=== PATIENT | male | born 1995 | race Caucasian/White ===

== ENCOUNTER 2016-05-20 20:23 | Emergency (ER) | payer MEDICAID, OTHER ==
[~2016-05-20] VITALS: Ht 185.4 cm; Wt 53.1 kg
[~2016-05-20 20:23] MED LIST: [UNRECOGNIZED DRUG - CODE]
--- OUTSIDE RECORDS SUMMARY | 2016-05-20 20:27 | XMS REPORT | Referral Summary ---
Author Author [facility] Organization [facility] Address Unknown Phone Unavailable Care Team Providers Care Conference Manager Name Role Phone Suzy Olmos Primary Care Physician [phone] Encounter [facility] [id number] Date(s): 09/10/15 - 09/12/15 [facility] [address] [place] [address] [phone] Discharge Diagnosis: DKA (diabetic ketoacidoses) Discharge Disposition: 01-Home or Self Care Attending Physician: Geneva Ramos MD Admitting Physician: Yossi Gomez MD Vital Signs Most recent to 1 oldest [Reference Range]: Temperature Oral 36.9 degC [35.8-37.3 degC] (09/10/15 9:22 PM) Temperature Temporal 36.5 degC Artery [36.3-37.8 (09/12/15 11:00 AM) degC] Apical Heart Rate 79 bpm [60-100 bpm] (09/11/15 1:08 AM) Peripheral Pulse 89 bpm Rate [60-100 bpm] (09/11/15 12:21 AM) Heart Rate Monitored 61 bpm [60-100 bpm] (09/12/15 11:00 AM) Respiratory Rate 15 br/min [14-20 br/min] (09/12/15 11:00 AM) Blood Pressure 107/71 mmHg [90-140/60-90 mmHg] (09/12/15 11:00 AM) Mean Arterial 79 mmHg Pressure, Cuff (09/12/15 11:00 AM) SpO2 96 % (09/12/15 3:40 PM) Problem List Condition Effective Dates Status Health Status Informant Acute Resolved pain(Confirmed) At risk of pressure Resolved sore(Confirmed) Unspecified Active depressive disorder(Confirmed) Long-term current Active use of insulin for diabetes mellitus(Confirmed) Insulin pump in Active place(Confirmed) Klinefelter Active syndrome(Confirmed) Tissue perfusion Resolved alteration(Confirmed )1 DM type I(Confirmed) Active 1Problem added automatically by system based on initiation of Tissue Perfusion Cerebral Plan of Care Allergies, Adverse Reactions, Alerts No Known Allergies Medications ibuprofen 400 mg, Oral, q6hr, Pain Mild (1-3), 0 Refill(s) Start Date: 09/10/15 Status: Ordered Levemir FlexPen 100 units/mL subcutaneous solution 15 units, SubCutaneous, Daily, stop taking levemir when insulin pump resumed., # 3 mL, 0 Refill(s), Pharmacy: [facility] #[id number], 15 units SubCutaneous Daily,x7 days,Instr:stop taking levemir when insulin pump resumed. Start Date: 09/12/15 Stop Date: 09/19/15 Status: Ordered NovoLOG 100 units/mL subcutaneous solution See Instructions, USE IN INSULIN PUMP 30-45 UNITS PER DAY, # 20 unknown unit, 2 Refill(s), eRx: [facility], USE IN INSULIN PUMP 30-45 UNITS PER DAY Start Date: 05/07/15 Status: Ordered NovoLOG FlexPen 100 units/mL subcutaneous solution 5 units, SubCutaneous, TIDAC, # 3 mL, 0 Refill(s), Pharmacy: [facility] # [id number], 5 units SubCutaneous TIDAC,x7 days Start Date: 09/12/15 Stop Date: 09/19/15 Status: Ordered Results Hematology Most recent to 1 2 oldest [Reference Range]: WBC [4.8-10.8 7.6 10*3/uL 10*3/uL] (09/12/15 3:43 AM) RBC [4.60-6.20] 4.39 *LOW* (09/12/15 3:43 AM) Hgb [14.0-18.0 13.9 gm/dL gm/dL] *LOW* (09/12/15 3:43 AM) Hct [42.0-52.0 %] 41.2 % *LOW* (09/12/15 3:43 AM) MCV [82.0-99.0 fL] 93.8 fL (09/12/15 3:43 AM) MCH [27.0-32.0 pg] 31.7 pg (09/12/15 3:43 AM) MCHC [32.0-36.0 33.7 gm/dL gm/dL] (09/12/15 3:43 AM) RDW [11.5-14.5 %] 13.7 % (09/12/15 3:43 AM) Platelet [150-400 211 10*3/uL 10*3/uL] (09/12/15 3:43 AM) MPV [9.4-12.3 fL] 11.5 fL (09/12/15 3:43 AM) Immature 0.3 % Granulocytes (09/12/15 3:43 AM) [0.0-1.0 %] Neutrophils [51-75 52 % %] (09/12/15 3:43 AM) Lymphocytes [20-46 35 % %] (09/12/15 3:43 AM) Monocytes [4-11 %] 7 % (09/12/15 3:43 AM) Eosinophils [0-4 %] 5 % *HI* (09/12/15 3:43 AM) Basophils [0-2 %] 0 % (09/12/15 3:43 AM) Neutro Absolute 3.98 10*3 [1.90-7.00 10*3] (09/12/15 3:43 AM) Lymph Absolute 2.64 10*3 [0.80-3.30 10*3] (09/12/15 3:43 AM) Terrell Absolute 0.55 10*3 [0.30-1.00 10*3] (09/12/15 3:43 AM) Eos Absolute 0.38 10*3 [0.00-0.50 10*3] (09/12/15 3:43 AM) Baso Absolute 0.03 10*3 [0.00-0.20 10*3] (09/12/15 3:43 AM) Nucleated RBC 0.0 /100 WBC Automated [0 /100 (09/12/15 3:43 AM) WBC] Chemistry Most recent to 1 2 oldest [Reference Range]: Sodium Lvl [136-144 137 mEq/L mEq/L] (09/12/15 5:05 AM) Potassium Lvl 3.6 mEq/L [3.6-5.1 mEq/L] (09/12/15 5:05 AM) Chloride [99-109 108 mEq/L mEq/L] (09/12/15 5:05 AM) CO2 [22-32 mEq/L] 23 mEq/L (09/12/15 5:05 AM) AGAP [3-20] 6 (09/12/15 5:05 AM) BUN [4-20 mg/dL] 8 mg/dL (09/12/15 5:05 AM) Glucose Lvl [70-100 154 mg/dL mg/dL] *HI* (09/12/15 5:05 AM) Creatinine Lvl 0.62 mg/dL [0.64-1.27 mg/dL] *LOW* (09/12/15 5:05 AM) eGFR [>60] >60 1 (09/12/15 5:05 AM) Calcium Lvl 8.4 mg/dL [8.6-10.0 mg/dL] *LOW* (09/12/15 5:05 AM) Albumin Lvl [3.5-4.8 3.0 gm/dL gm/dL] *LOW* (09/12/15 5:05 AM) Total Protein 5.4 gm/dL [6.1-7.9 gm/dL] *LOW* (09/12/15 5:05 AM) Globulin [1.9-4.3 2.4 gm/dL gm/dL] (09/12/15 5:05 AM) ALT [17-63 U/L] 13 U/L *LOW* (09/12/15 5:05 AM) AST [15-41 U/L] 16 U/L (09/12/15 5:05 AM) Alk Phos [26-104 65 U/L U/L] (09/12/15 5:05 AM) Bili Total [0.2-1.2 0.7 mg/dL 2 mg/dL] (09/12/15 5:05 AM) Sodium Venous 130 mEq/L [136-144 mEq/L] *LOW* (09/10/15 9:49 PM) Potassium Venous 3.9 mEq/L 3 [3.6-5.1 mEq/L] (09/10/15 9:49 PM) Calcium Ionized 1.21 mmol/L Venous [1.19-1.41 (7/8/16 9:49 PM) mmol/L] Total CO2 Venous 13 mEq/L [25-29 mEq/L] *LOW* (09/10/15 9:49 PM) HGB Venous NPT 16.7 gm/dL [14.0-16.0 gm/dL] *HI* (09/10/15 9:49 PM) HCT Venous 49.0 % [42.0-52.0 %] (09/10/15 9:49 PM) Glucose Venous >700 mg/dL [70-100 mg/dL] *HHI* (09/10/15 9:49 PM) BUN Venous [4-20] 19 (09/10/15 9:49 PM) Creatinine Venous 0.9 mg/dL [0.7-1.2 mg/dL] (09/10/15 9:49 PM) Venous CL [99-109 95 mEq/L mEq/L] *LOW* (09/10/15 9:49 PM) Anion Gap, Artis 22 [3-20] *HI* (09/10/15 9:49 PM) Blood Glucose, 233 mg/dL 233 mg/dL Capillary [74-106 *HI* *HI* mg/dL] (09/12/15 11:29 AM) (09/12/15 11:29 AM) Blood Glucose, High Capillary Out of (09/11/15 6:38 PM) Range 1Result Comment: Multiply eGFR results by 1.21 for race. 2Result Comment: Naproxen, specifically the metabolite O-desmethylnaproxen, may cause spurious elevation in Total Bilirubin levels. 3Result Comment: This test was performed on a whole blood specimen. The presence or absence of hemolysis cannot be assessed. Hemolysis can falsely elevate potassium levels. Normals are for venous specimens only. Toxicology Most recent to 1 2 oldest [Reference Range]: U Amphetamine Scrn Negative (09/11/15 1:44 AM) U Cocaine Scrn Negative (09/11/15 1:44 AM) U Cannab Scrn Positive *ABN* (09/11/15 1:44 AM) U Opiate Scrn Negative (09/11/15 1:44 AM) U PCP Scrn Negative (09/11/15 1:44 AM) U Benzodiazepine Negative Scrn (09/11/15 1:44 AM) U Barbiturate Scrn Negative (09/11/15 1:44 AM) Methadone Lvl Negative (09/11/15 1:44 AM) Tricyclics Not Detected 1 (09/11/15 1:44 AM) 1Result Comment: Cut-off concentrations: Amphetamines: 1000 ng/mL Cocaine: 300 ng/mL Cannabinoid: 50 ng/mL Opiate: 300 ng/mL Phencyclidine (PCP): 25 ng/mL Benzodiazepine: 200 ng/mL Barbiturate: 200 ng/mL Methadone: 300 ng/mL Tricyclic: 300 ng/mL The urine drug screen assays are qualitative screens. A more specific GC/MS method must be performed to obtain a confirmed analytical result. Unconfirmed screening results must not be used for non-medical purposes(e.g. employment or legal testing) Urinalysis Most recent to 1 2 oldest [Reference Range]: UA Color Straw (09/11/15 1:44 AM) UA Appear Clear (09/11/15 1:44 AM) UA pH [5.0-8.0] 5.0 (09/11/15 1:44 AM) UA Leuk Est Negative [Negative] (09/11/15 1:44 AM) UA Nitrite Negative [Negative] (09/11/15 1:44 AM) UA Protein Negative [Negative] (09/11/15 1:44 AM) UA Glucose Pos 3+ [Negative] *ABN* (09/11/15 1:44 AM) UA Ketones Pos 2+ [Negative] *ABN* (09/11/15 1:44 AM) UA Urobilinogen Negative [<1.0] (09/11/15 1:44 AM) UA Bili [Negative] Negative (09/11/15 1:44 AM) UA Blood [Negative] Negative (09/11/15 1:44 AM) UA Spec Grav 1.030 [1.003-1.030] (09/11/15 1:44 AM) Type Clean Catch (09/11/15 1:44 AM) Immunizations No data available for this section Procedures No data available for this section Social History Social History Type Response Smoking Status Current every day smoker Assessment and Plan Future Scheduled TestsReferral* Return to Clinic 10/23/14 12:06 PM Referrals to Other Providers Referred by: Anne Collins APRN
--- OUTSIDE RECORDS SUMMARY | 2016-05-20 20:27 | XMS REPORT ---
Author Monisha Woo [employer] Address Unknown Phone Unavailable Care Team Providers Care Sfdc Technical Architect Name Role Phone Monisha Schmitz CP Unavailable Allergies, Adverse Reactions, Alerts Substance Reaction Event Type N.K.D.A. Info Not Available Non Drug Allergy Problems Problem Type Condition Code Onset Dates Condition Status Assessment Type 1 diabetes mellitus with hyperglycemia E10.65 Active Problem Type 1 diabetes mellitus with hyperglycemia E10.65 Active Medications Medication Code System Code Instructions Start Date End Date Status Dosage Testosterone Cypionate [facility] [address]-99 200 MG/ML Intramuscular every 2 weeks Dec 08, 2015 0.25 ml as directed Syringe/Needle (Disp) NDC 0 23G X 1 IM every 2 weeks Dec 08, 2015 as directed Syringe/Needle (Disp) NDC 0 22G X 1-1/2 IM every 2 weeks Dec 08, 2015 as directed Humalog [facility] [address]-16 100 UNIT/ML Subcutaneous 150 units every 3 days Dec 13, 2015 1:8 carb ratio Procedures Procedure Coding System Code Date DM OP SLF-MGMT TRN SRVC IND-30 MIN CPT-4 G0108 Dec 15, 2015 Results No Known Results Summary Purpose eClinicalWorks Submission
--- OUTSIDE RECORDS SUMMARY | 2016-05-20 20:27 | XMS REPORT | Referral Summary ---
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 Discharge Diagnosis: Insulin pump in place Discharge Disposition: 01-Home or Self Care Attending Physician: Anne Collins APRN Admitting Physician: Anne Collins APRN Vital Signs Most recent to 1 oldest [Reference Range]: Peripheral Pulse 80 bpm Rate [60-100 bpm] (12/15/14 2:36 PM) Blood Pressure 100/60 mmHg [90-140/60-90 mmHg] (12/15/14 2:36 PM) Problem List Condition Effective Dates Status Health Status Informant 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) Insulin pump in Active place(Confirmed) 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 ) Type 1 diabetes Active mellitus, uncontrolled(Confirm ed) Allergies, Adverse Reactions, Alerts No Known Allergies Medications Depo-Testosterone 100 mg/mL intramuscular solution 100 mg 1 mL, IntraMuscular, q2wk, # 3 mL, 5 Refill(s) Start Date: 12/15/14 Status: Ordered Miscellaneous DME DME Item 3ml syringe with 11/2 inch needle uses syringe every 2 weeks 1 box= 100, See Instructions, # 1 Each, 8 Refill(s), Supply Start Date: 12/15/14 Status: Ordered NovoLOG 100 units/mL subcutaneous solution See Instructions, 1.0 mn per pump ICR 1:12 uses 30-45 units per day, # 2 vials , 6 Refill(s), Pharmacy: [id number], .9 mn per pump; ICR 1:12; uses 30-45 units per day Start Date: 10/23/14 Status: Ordered Results No data available for this section Immunizations No data available for this section Procedures No data available for this section Social History Social History Type Response Smoking Status Never smoker Assessment and Plan Extracted from: Title: Office Visit Note Author: Anne Collins APRN Date: 12/15/14 Assessment/Plan 1.Type 1 diabetes mellitus, uncontrolled 1. check blood sugars fasting, before meals and 2 hours after meals daily 2. increase basal rate to 1.0 and continue same ICR 3. start depo-testosterone 100mg Im q two weeks, injection given before leaving today 4. call weekly blood sugars to office 5. monitor diet closely I discussed the patient with the preceptor. 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 Ordered: Office Visit Level 4 Est 74594 Orders: Durable Medical Equipment Rx, DME Item 3ml syringe with 11/2 inch needle uses syringe every 2 weeks 1 [id number], See Instructions, # 1 Each, 8 Refill(s), Supply insulin aspart, See Instructions, 1.0 mn per pump ICR 1:12 uses 30-45 units per day, # 2 vials, 6 Refill(s), Pharmacy: [id number], .9 mn per pump; ICR 1:12; uses 30-45 units per day testosterone, 100 mg 1 mL, IntraMuscular, q2wk, # 3 mL, 5 Refill(s) Extracted from: Title: Ambulatory Patient Education Author: Anne Collins FABRIC WORKER LEADER Date: 12/15/14 Family Medicine Blood Glucose Monitoring Monitoring your blood glucose (also know as blood sugar) helps you to manage your diabetes. It also helps you and your health care provider monitor your diabetes and determine how well your treatment plan is working. WHY SHOULD YOU MONITOR YOUR BLOOD GLUCOSE? It can help you understand how food, exercise, and medicine affect your blood glucose. It allows you to know what your blood glucose is at any given moment. You can quickly tell if you are having low blood glucose (hypoglycemia) or high blood glucose (hyperglycemia). It can help you and your health care provider know how to adjust your medicines. It can help you understand how to manage an illness or adjust medicine for exercise. WHEN SHOULD YOU TEST? Your health care provider will help you decide how often you should check your blood glucose. This may depend on the type of diabetes you have, your diabetes control, or the types of medicines you are taking. Be sure to write down all of your blood glucose readings so that this information can be reviewed with your health care provider. See below for examples of testing times that your health care provider may suggest. Type 1 Diabetes Test 4 times a day if you are in good control, using an insulin pump, or perform multiple daily injections. If your diabetes is not well controlled or if you are sick, you may need to monitor more often. It is a good idea to also monitor: Before and after exercise. Between meals and 2 hours after a meal. Occasionally between 2:00 a.m. and 3:00 a.m. Type 2 Diabetes It can vary with each person, but generally, if you are on insulin, test 4 times a day. If you take medicines by mouth (orally), test 2 times a day. If you are on a controlled diet, test once a day. If your diabetes is not well controlled or if you are sick, you may need to monitor more often. HOW TO MONITOR YOUR BLOOD GLUCOSE Supplies Needed Blood glucose meter. Test strips for your meter. Each meter has its own strips. You must use the strips that go with your own meter. A pricking needle (lancet). A device that holds the lancet (lancing device). A journal or log book to write down your results. Procedure Wash your hands with soap and water. Alcohol is not preferred. Prick the side of your finger (not the tip) with the lancet. Gently milk the finger until a small drop of blood appears. Follow the instructions that come with your meter for inserting the test strip, applying blood to the strip, and using your blood glucose meter. Other Areas to Get Blood for Testing Some meters allow you to use other areas of your body (other than your finger) to test your blood. These areas are called alternative sites. The most common alternative sites are: The forearm. The thigh. The back area of the lower leg. The palm of the hand. The blood flow in these areas is slower. Therefore, the blood glucose values you get may be delayed, and the numbers are different from what you would get from your fingers. Do not use alternative sites if you think you are having hypoglycemia. Your reading will not be accurate. Always use a finger if you are having hypoglycemia. Also, if you cannot feel your lows (hypoglycemia unawareness), always use your fingers for your blood glucose checks. ADDITIONAL TIPS FOR GLUCOSE MONITORING Do not reuse lancets. Always carry your supplies with you. All blood glucose meters have a 24-hour "hotline" number to call if you have questions or need help. Adjust (calibrate) your blood glucose meter with a control solution after finishing a few boxes of strips. BLOOD GLUCOSE RECORD KEEPING It is a good idea to keep a daily record or log of your blood glucose readings. Most glucose meters, if not all, keep your glucose records stored in the meter. Some meters come with the ability to download your records to your home computer. Keeping a record of your blood glucose readings is especially helpful if you are wanting to look for patterns. Make notes to go along with the blood glucose readings because you might forget what happened at that exact time. Keeping good records helps you and your health care provider to work together to achieve good diabetes management. Document Released: 02/22/2004 Document Revised: 07/06/2014 Document Reviewed: [employer] Patient Information 2015 [employer]. This information is not intended to replace advice given to you by your health care provider. Make sure you discuss any questions you have with your health care provider. No follow up information was provided. Future Scheduled TestsReferral* Return to Clinic 10/23/14 12:06 PM Referrals to Other Providers Referred by: Anne Collins APRN
--- OUTSIDE RECORDS SUMMARY | 2016-05-20 20:27 | XMS REPORT | Referral Summary ---
Author Author [facility]] Organization [facility]] Address Unknown Phone Unavailable Care Team Providers Care Activity Coordinator Name Role Phone No PCP, Pt States Primary Care Physician [phone] Encounter [facility] Date(s): 11/09/15 - 11/09/15 [facility]] [address] [place] [address] Discharge Diagnosis: Poorly controlled type 1 diabetes mellitus Discharge Disposition: 01-Home or Self Care Attending Physician: Hussein Burr MD Admitting Physician: Hussein Burr MD Vital Signs Most recent to 1 oldest [Reference Range]: Temperature Oral 36.7 degC [35.8-37.3 degC] (11/09/15 1:30 PM) Peripheral Pulse 74 bpm Rate [60-100 bpm] (11/09/15 1:30 PM) Heart Rate Monitored 69 bpm [60-100 bpm] (11/09/15 4:38 PM) Respiratory Rate 18 br/min [14-20 br/min] (11/09/15 1:30 PM) Blood Pressure 102/62 mmHg [90-140/60-90 mmHg] (11/09/15 4:38 PM) Mean Arterial 74 mmHg Pressure, Cuff (11/09/15 4:38 PM) SpO2 96 % (11/09/15 1:30 PM) Problem List Condition Effective Dates Status [...] 0 Refill(s) Start Date: 09/10/15 Status: Ordered Insulin Pin [place] (DME) DME Item Insulin pen needle [id number] Inject 1 sq QID, See Instructions, # 400 Each, 3 Refill(s), Pharmacy: [facility], Insulin pen needle; [id number]; Inject 1 sq QID, Supply Start Date: 10/27/15 Status: Ordered Lantus Solostar Pen 100 units/mL subcutaneous solution See Instructions, Use as directed in the event of pump failure, approx 20 units/ day, # 1 boxes, 5 Refill(s), Pharmacy: [facility], Use as directed in the event of pump failure, approx 20 units/day Start Date: 10/27/15 Status: Ordered NovoLOG 100 units/mL subcutaneous solution See Instructions, USE IN INSULIN PUMP 30-45 UNITS PER DAY, # 5 vials, 4 Refill (s), Pharmacy: [facility], USE IN INSULIN PUMP 30-45 UNITS PER DAY Start Date: 10/19/15 Status: Ordered NovoLOG FlexPen 100 units/mL subcutaneous solution 5 units, SubCutaneous, TIDAC, # 3 boxes, 5 Refill(s), Pharmacy: [facility], 5 units SubCutaneous TIDAC Start Date: 10/27/15 Status: Ordered Simply Saline 0.9% nasal spray 1 sprays, Nasal, q30min, as needed for dry nasal passages, # 45 mL, 0 Refill(s) Start Date: 10/26/15 Status: Ordered Results Chemistry Most recent to 1 oldest [Reference Range]: Sodium Lvl [136-144 130 mEq/L mEq/L] *LOW* (11/09/15 2:29 PM) Potassium Lvl 4.3 mEq/L [3.6-5.1 mEq/L] (11/09/15 2:29 PM) Chloride [99-109 94 mEq/L mEq/L] *LOW* (11/09/15 2:29 PM) CO2 [22-32 mEq/L] 19 mEq/L *LOW* (11/09/15 2:29 PM) AGAP [3-20] 17 (11/09/15 2:29 PM) BUN [4-20 mg/dL] 24 mg/dL *HI* (11/09/15 2:29 PM) Glucose Lvl [70-100 582 mg/dL mg/dL] *HI* (11/09/15 2:29 PM) Creatinine Lvl 1.00 mg/dL [0.64-1.27 mg/dL] (11/09/15 2:29 PM) eGFR [>60] >60 1 (11/09/15 2:29 PM) Calcium Lvl 9.7 mg/dL [8.6-10.0 mg/dL] (11/09/15 2:29 PM) Blood Glucose, 305 mg/dL Capillary [70-100 *HI* mg/dL] (11/09/15 4:29 PM) 1Result Comment: Multiply eGFR results by 1.21 for race. Urinalysis Most recent to 1 oldest [Reference Range]: UA Color Lt Yellow (11/09/15 2:29 PM) UA Appear Clear (11/09/15 2:29 PM) UA pH [5.0-8.0] 5.0 (11/09/15 2:29 PM) UA Leuk Est Negative [Negative] (11/09/15 2:29 PM) UA Nitrite Negative [Negative] (11/09/15 2:29 PM) UA Protein Negative [Negative] (11/09/15 2:29 PM) UA Glucose Pos 3+ [Negative] *ABN* (11/09/15 2:29 PM) UA Ketones Pos 3+ [Negative] *ABN* (11/09/15 2:29 PM) UA Urobilinogen Negative [<1.0] (11/09/15 2:29 PM) UA Bili [Negative] Negative (11/09/15 2:29 PM) UA Blood [Negative] Negative (11/09/15 2:29 PM) UA Spec Grav 1.028 [1.003-1.030] (11/09/15 2:29 PM) Type Clean Catch (11/09/15 2:29 PM) Immunizations No data available for this section Procedures No data available for this section Social History Social History Type Response Smoking Status Former smoker Assessment and Plan No data available for this section
--- OUTSIDE RECORDS SUMMARY | 2016-05-20 20:27 | XMS REPORT | Referral Summary ---
Author Author [facility] Organization [facility] Address Unknown Phone Unavailable Care Team Providers Care Import Coordination And Production Head Name Role Phone No PCP, Pt States Primary Care Physician [phone] Encounter [facility] Date(s): 10/26/15 - 10/27/15 [facility] [address] [place] [address] Discharge Diagnosis: Acute URI Discharge Diagnosis: Pharyngitis Discharge Diagnosis: Sinusitis Discharge Disposition: 01-Home or Self Care Attending Physician: Juan Bennett MD Admitting Physician: Juan Bennett MD Vital Signs Most recent to 1 oldest [Reference Range]: Temperature Oral 36.9 degC [35.8-37.3 degC] (10/26/15 11:04 PM) Peripheral Pulse 64 bpm Rate [60-100 bpm] (10/27/15 12:07 AM) Respiratory Rate 18 br/min [14-20 br/min] (10/26/15 11:04 PM) Blood Pressure 110/64 mmHg [90-140/60-90 mmHg] (10/27/15 12:07 AM) SpO2 97 % (10/26/15 11:49 PM) Problem List Condition Effective Dates Status [...] Adverse Reactions, Alerts No Known Allergies Medications azithromycin 250 mg oral tablet 250 mg 1 tabs, Oral, Daily, 2 tabs PO day 1, 1 tab/day after that, # 8 tabs, 0 Refill(s) Start Date: 10/26/15 Stop Date: 11/02/15 Status: Ordered ibuprofen 400 mg, Oral, q6hr, Pain Mild (1-3), 0 Refill(s) Start Date: 09/10/15 Status: Ordered Insulin Pin [place] (DME) DME Item Insulin pen needle [id number] Inject 1 sq QID, See Instructions, # 400 Each, 3 Refill(s), Pharmacy: [facility], Insulin pen needle; [id number]; Inject 1 sq QID, Supply Start Date: 10/27/15 Status: Ordered Lantus Solostar Pen 100 units/mL subcutaneous solution See Instructions, Use as directed in the event of pump failure, approx 20 units/ day, # 1 boxes, 5 Refill(s), Pharmacy: [facility], Use as directed in the event of pump failure, approx 20 units/day Start Date: 10/27/15 Status: Ordered Naprosyn 500 mg oral tablet 500 mg 1 tabs, Oral, q8hr, Pain, X 3 days, # 9 tabs, 0 Refill(s) Start Date: 10/26/15 Stop Date: 10/29/15 Status: Ordered NovoLOG 100 units/mL subcutaneous solution See Instructions, USE IN INSULIN PUMP 30-45 UNITS PER DAY, # 5 vials, 4 Refill (s), Pharmacy: [facility], USE IN INSULIN PUMP 30-45 UNITS PER DAY Start Date: 10/19/15 Status: Ordered NovoLOG FlexPen 100 units/mL subcutaneous solution 5 units, SubCutaneous, TIDAC, # 3 boxes, 5 Refill(s), Pharmacy: [facility], 5 units SubCutaneous TIDAC Start Date: 10/27/15 Status: Ordered NyQuil Severe Cold & Flu oral liquid 30 mL, Oral, q4hr, as needed for cold symptoms, X 3 days, # 540 mL, 0 Refill(s) Start Date: 10/26/15 Stop Date: 10/29/15 Status: Ordered Simply Saline 0.9% nasal spray 1 sprays, Nasal, q30min, as needed for dry nasal passages, # 45 mL, 0 Refill(s) Start Date: 10/26/15 Status: Ordered Results No data available for this section Immunizations No data available for this section Procedures No data available for this section Social History Social History Type Response Smoking Status Former smoker Assessment and Plan No data available for this section
--- OUTSIDE RECORDS SUMMARY | 2016-05-20 20:27 | XMS REPORT ---
Author Author Clarence Pryor [facility] e[facility] Address Unknown Phone Unavailable Care Team Providers Care Damascener Name Role Phone Clarence Pryor Unavailable Allergies No Known Allergies Problems Problem Type Condition Code Onset Dates Condition Status Problem Type 1 diabetes mellitus with hyperglycemia E10.65 Active Medications No Known Medications Results No Known Results Summary Purpose eClinicalWorks Submission
--- OUTSIDE RECORDS SUMMARY | 2016-05-20 20:27 | XMS REPORT | Referral Summary ---
Author Author [facility] Organization [facility] Address Unknown Phone Unavailable Care Team Providers Care Electric Crane Operator Name Role Phone Suzy Olmos Primary Care Physician [phone] Encounter Date(s): 11/26/14 - 11/26/14 [facility] [address] [place] [address] [facility] Discharge Disposition: 01-Home or Self Care Attending Physician: Jarocho Madrid MD Admitting Physician: Jarocho Madrid MD Vital Signs No data available for this section Problem List Condition Effective Dates Status Health Status Informant [facility] current Active use of insulin(Confirmed) Insulin pump in Active place(Confirmed) 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 ) Type 1 diabetes Active mellitus, uncontrolled(Confirm ed) Allergies, Adverse Reactions, Alerts No Known Allergies Medications NovoLOG 100 units/mL subcutaneous solution See Instructions, .9 mn per pump ICR 1:12 uses 30-45 units per day, # 2 vials , 6 Refill(s), Pharmacy: [id number], .9 mn per pump; ICR 1:12; uses 30-45 units per day Start Date: 10/23/14 Status: Ordered Results No data available for this section Immunizations No data available for this section Procedures No data available for this section Social History Social History Type Response Smoking Status Never smoker Assessment and Plan Future Scheduled TestsReferral* Return to Clinic 10/23/14 12:06 PM Referrals to Other Providers Referred by: Anne Collins APRN
--- OUTSIDE RECORDS SUMMARY | 2016-05-20 20:27 | XMS REPORT | Referral Summary ---
Author Author [facility] Organization [facility] Address Unknown Phone Unavailable Care Team Providers Care Financial Services Associate Name Role Phone Suzy Olmos Primary Care Physician [phone] Encounter [facility] [id number] Date(s): 10/17/15 - 10/18/[address] [facility] [address] [place] [address] Discharge Diagnosis: Diabetes mellitus with hyperglycemia Discharge Diagnosis: Contusion of right hand Discharge Disposition: 01-Home or Self Care Attending Physician: Cristopher Brooks JR, MD Admitting Physician: Cristopher Brooks JR, MD Vital Signs Most recent to 1 oldest [Reference Range]: Temperature Oral 36.9 degC [35.8-37.3 degC] (10/18/15 12:49 AM) Peripheral Pulse 80 bpm Rate [60-100 bpm] (10/18/15 12:49 AM) Respiratory Rate 16 br/min [14-20 br/min] (10/18/15 12:49 AM) Blood Pressure 100/60 mmHg [90-140/60-90 mmHg] (10/18/15 12:49 AM) SpO2 98 % (10/18/15 12:49 AM) Problem List Condition Effective Dates Status Health [...] 0 Refill(s) Start Date: 09/10/15 Status: Ordered Lantus Solostar Pen 100 units/mL subcutaneous solution See Instructions, Use as directed in the event of pump failure, approx 20 units/ day, # 1 boxes, 5 Refill(s), Pharmacy: [facility] #[id number], Use as directed in the event of pump failure, approx 20 units/day Start Date: 09/30/15 Status: Ordered Levemir FlexPen 100 units/mL subcutaneous solution 15 units, SubCutaneous, Daily, stop taking levemir when insulin pump resumed., # 3 mL, 0 Refill(s), Pharmacy: [facility] #[id number], 15 units SubCutaneous Daily,x7 days,Instr:stop taking levemir when insulin pump resumed. Start Date: 09/12/15 Stop Date: 09/19/15 Status: Ordered NovoLOG 100 units/mL subcutaneous solution See Instructions, USE IN INSULIN PUMP 30-45 UNITS PER DAY, # 5 vials, 1 Refill (s), Pharmacy: [facility] #[id number], USE IN INSULIN PUMP 30-45 UNITS PER DAY Start Date: 10/18/15 Status: Ordered NovoLOG FlexPen 100 units/mL subcutaneous solution 5 units, SubCutaneous, TIDAC, # 3 boxes, 5 Refill(s), Pharmacy: [facility] #[id number], 5 units SubCutaneous TIDAC Start Date: 09/30/15 Status: Ordered Results Chemistry Most recent to 1 oldest [Reference Range]: Blood Glucose, 338 mg/dL Capillary [70-100 *HI* mg/dL] (10/18/15 12:13 AM) Immunizations No data available for this section Procedures No data available for this section Social History Social History Type Response Smoking Status Current every day smoker Assessment and Plan Future Scheduled TestsReferral* Return to Clinic 10/23/14 12:06 PM Referrals to Other Providers Referred by: Anne Collins APRN
--- OUTSIDE RECORDS SUMMARY | 2016-05-20 20:27 | XMS REPORT | Referral Summary ---
Author Author [facility] Organization [facility] Address Unknown Phone Unavailable Care Team Providers Care Lead Ios Developer Name Role Phone Suzy Olmos Primary Care Physician [phone] Encounter Date(s): 11/26/14 - 11/26/14 [facility] [address] [place] [address] [facility] Discharge Disposition: 01-Home or Self Care Attending Physician: Jarocho Madrid MD Admitting Physician: Jarocho Madrid MD Vital Signs No data available for this section Problem List Condition Effective Dates Status Health Status Informant [facility] current Active use of insulin(Confirmed) Insulin pump in Active place(Confirmed) 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
--- OUTSIDE RECORDS SUMMARY | 2016-05-20 20:27 | XMS REPORT | Referral Summary ---
Author Author [facility] Organization [facility] Address Unknown Phone Unavailable Care Team Providers Care Weaver Needle Loom Name Role Phone Suzy Olmos Primary Care Physician [phone] Encounter [facility] Date(s): 01/02/16 - 01/06/[address] [facility] [address] [place], [place] [address] Discharge Disposition: 01-Home or Self Care Attending Physician: Casey Ragland MD Admitting Physician: Gamaliel Adler MD Vital Signs Most recent to 1 oldest [Reference Range]: Temperature Oral 36.9 degC [35.8-37.3 degC] (01/05/16 8:15 PM) Temperature Temporal 36.4 degC Artery [36.3-37.8 (01/06/16 4:00 PM) degC] Peripheral Pulse 72 bpm Rate [60-100 bpm] (01/05/16 4:00 PM) Heart Rate Monitored 76 bpm [60-100 bpm] (01/06/16 4:00 PM) Respiratory Rate 14 br/min [14-20 br/min] (01/06/16 4:00 PM) Blood Pressure 106/61 mmHg [90-140/60-90 mmHg] (01/06/16 4:00 PM) Mean Arterial 78 mmHg Pressure, Cuff (01/06/16 8:57 AM) SpO2 97 % (01/06/16 8:57 AM) Remote Telemetry Ongoing (01/03/16 8:15 AM) Problem List Condition Effective Dates Status Health Status Informant Acute Resolved pain(Confirmed) At risk of pressure Active sore(Confirmed) Unspecified Active depressive disorder(Confirmed) Long-term current Active use of insulin for diabetes mellitus(Confirmed) Insulin pump in Active place(Confirmed) Klinefelter Active syndrome(Confirmed) Tissue perfusion Resolved alteration(Confirmed )1 DM type I(Confirmed) Active 1Problem added automatically by system based on initiation of Tissue Perfusion Cerebral Plan of Care Allergies, Adverse Reactions, Alerts No Known Allergies Medications insulin pump humalog insulin pump humalog, 50 units per day, 0 Refill(s) Start Date: 01/02/16 Status: Ordered Results Hematology Most recent to 1 oldest [Reference Range]: WBC [4.8-10.8 8.4 10*3/uL 10*3/uL] (01/04/16 4:46 AM) RBC [4.60-6.20] 4.45 *LOW* (01/04/16 4:46 AM) Hgb [14.0-18.0 13.8 gm/dL gm/dL] *LOW* (01/04/16 4:46 AM) Hct [42.0-52.0 %] 39.8 % *LOW* (01/04/16 4:46 AM) MCV [82.0-99.0 fL] 89.4 fL (01/04/16 4:46 AM) MCH [27.0-32.0 pg] 31.0 pg (01/04/16 4:46 AM) MCHC [32.0-36.0 34.7 gm/dL gm/dL] (01/04/16 4:46 AM) RDW [11.5-14.5 %] 12.7 % (01/04/16 4:46 AM) Platelet [150-400 210 10*3/uL 10*3/uL] (01/04/16 4:46 AM) MPV [9.4-12.3 fL] 10.6 fL (01/04/16 4:46 AM) Immature 0.2 % Granulocytes (01/04/16 4:46 AM) [0.0-1.0 %] Neutrophils [51-75 42 % %] *LOW* (01/04/16 4:46 AM) Lymphocytes [20-46 42 % %] (01/04/16 4:46 AM) Monocytes [4-11 %] 7 % (01/04/16 4:46 AM) Eosinophils [0-4 %] 8 % *HI* (01/04/16 4:46 AM) Basophils [0-2 %] 1 % (01/04/16 4:46 AM) Neutro Absolute 3.52 10*3 [1.90-7.00 10*3] (01/04/16 4:46 AM) Lymph Absolute 3.53 10*3 [0.80-3.30 10*3] *HI* (01/04/16 4:46 AM) Faulkner Absolute 0.58 10*3 [0.30-1.00 10*3] (01/04/16 4:46 AM) Eos Absolute 0.64 10*3 [0.00-0.50 10*3] *HI* (01/04/16 4:46 AM) Baso Absolute 0.07 10*3 [0.00-0.20 10*3] (01/04/16 4:46 AM) Nucleated RBC 0.0 /100 WBC Automated [0 /100 (01/03/16 3:49 AM) WBC] Differential Scanned Slide (01/03/16 3:49 AM) Chemistry Most recent to 1 oldest [Reference Range]: Sodium Lvl [136-144 137 mEq/L mEq/L] (01/05/16 4:29 AM) Potassium Lvl 3.4 mEq/L [3.6-5.1 mEq/L] *LOW* (01/05/16 4:29 AM) Chloride [99-109 102 mEq/L mEq/L] (01/05/16 4:29 AM) CO2 [22-32 mEq/L] 27 mEq/L (01/05/16 4:29 AM) AGAP [3-20] 8 (01/05/16 4:29 AM) BUN [4-20 mg/dL] 16 mg/dL (01/05/16 4:29 AM) Glucose Lvl [70-100 97 mg/dL mg/dL] (01/05/16 4:29 AM) Creatinine Lvl 0.63 mg/dL [0.64-1.27 mg/dL] *LOW* (01/05/16 4:29 AM) eGFR [>60] >60 1 (01/05/16 4:29 AM) Calcium Lvl 9.4 mg/dL [8.6-10.0 mg/dL] (01/05/16 4:29 AM) Albumin Lvl [3.5-4.8 3.4 gm/dL gm/dL] *LOW* (01/04/16 4:46 AM) Total Protein 6.4 gm/dL [6.1-7.9 gm/dL] (01/02/16 10:08 PM) Globulin [1.9-4.3 2.6 gm/dL gm/dL] (01/02/16 10:08 PM) ALT [17-63 U/L] 17 U/L (01/02/16 10:08 PM) AST [15-41 U/L] 24 U/L (01/02/16 10:08 PM) Alk Phos [26-104 138 U/L U/L] *HI* (01/02/16 10:08 PM) Bili Total [0.2-1.2 1.0 mg/dL 2 mg/dL] (01/02/16 10:08 PM) Magnesium Lvl 2.2 mg/dL [1.8-2.5 mg/dL] (01/02/16 10:08 PM) Phosphorus [2.4-4.7 4.4 mg/dL 3 mg/dL] (01/04/16 4:46 AM) Lactic Acid Lvl 4.6 mEq/L 4 [0.5-2.2 mEq/L] *HHI* (01/02/16 10:54 PM) Sodium Venous 131 mEq/L [136-144 mEq/L] *LOW* (01/02/16 9:29 PM) Potassium Venous 4.8 mEq/L 5 [3.6-5.1 mEq/L] (01/02/16 9:29 PM) Calcium Ionized 1.21 mmol/L Venous [1.19-1.41 (01/02/16 9:29 PM) mmol/L] Total CO2 Venous 19 mEq/L [25-29 mEq/L] *LOW* (01/02/16 9:29 PM) HGB Venous NPT 13.9 gm/dL [14.0-18.0 gm/dL] *LOW* (01/02/16 9:29 PM) HCT Venous 41.0 % [42.0-52.0 %] *LOW* (01/02/16 9:29 PM) Glucose Venous >700 mg/dL [70-100 mg/dL] *HHI* (01/02/16 9:29 PM) BUN Venous [4-20] 21 *HI* (01/02/16 9:29 PM) Creatinine Venous 0.8 mg/dL [0.7-1.2 mg/dL] (01/02/16 9:29 PM) Venous CL [99-109 95 mEq/L mEq/L] *LOW* (01/02/16 9:29 PM) Anion Gap, Artis 17 [3-20] (01/02/16 9:29 PM) Blood Glucose, 224 mg/dL Capillary [74-106 *HI* mg/dL] (01/06/16 1:50 PM) Hgb A1c [4.1-5.6 %] 11.6 % *HI* (01/03/16 1:59 AM) eAvg Glucose 286.2 mg/dL (01/03/16 1:59 AM) 1Result Comment: Multiply eGFR results by 1.21 for race. 2Result Comment: Naproxen, specifically the metabolite O-desmethylnaproxen, may cause spurious elevation in Total Bilirubin levels. 3Result Comment: High dosages of liposomal Amphotericin B (AmBisome) therapy or other drug preparations that use a liposomal envelope to facilitate drug delivery may cause falsely elevated results for phosphorus. 4Result Comment: Critical value called, and read-back verified. Called to Mari Thomas RN at 01/02/2016 23:43 5Result Comment: This test was performed on a whole blood specimen. The presence or absence of hemolysis cannot be assessed. Hemolysis can falsely elevate potassium levels. Normals are for venous specimens only. Toxicology Most recent to 1 oldest [Reference Range]: Ethanol Lvl 79 mg/dL (01/02/16 10:08 PM) U Amphetamine Scrn Negative (01/02/16 10:54 PM) U Cocaine Scrn Negative (01/02/16 10:54 PM) U Cannab Scrn Negative (01/02/16 10:54 PM) U Opiate Scrn Negative (01/02/16 10:54 PM) U PCP Scrn Negative (01/02/16 10:54 PM) U Benzodiazepine Negative Scrn (01/02/16 10:54 PM) U Barbiturate Scrn Negative (01/02/16 10:54 PM) Methadone Lvl Negative (01/02/16 10:54 PM) Tricyclics Negative 1 (01/02/16 10:54 PM) 1Result Comment: Cut-off concentrations: Amphetamines: 1000 ng/mL [...] legal testing) Urinalysis Most recent to 1 oldest [Reference Range]: UA Color Colorless (01/02/16 10:54 PM) UA Appear Clear (01/02/16 10:54 PM) UA pH [5.0-8.0] 5.0 (01/02/16 10:54 PM) UA Leuk Est Negative [Negative] (01/02/16 10:54 PM) UA Nitrite Negative [Negative] (01/02/16 10:54 PM) UA Protein Negative [Negative] (01/02/16 10:54 PM) UA Glucose Pos 3+ [Negative] *ABN* (01/02/16 10:54 PM) UA Ketones Pos 1+ [Negative] *ABN* (01/02/16 10:54 PM) UA Urobilinogen Negative [<1.0] (01/02/16 10:54 PM) UA Bili [Negative] Negative (01/02/16 10:54 PM) UA Blood [Negative] Negative (01/02/16 10:54 PM) UA Spec Grav 1.030 [1.003-1.030] (01/02/16 10:54 PM) Type Clean Catch (01/02/16 10:54 PM) Immunizations No data available for this section Procedures Procedure Date Related Diagnosis Body Site Adenoidectomy Social History Social History Type Response Smoking Status Current every day smoker Assessment and Plan No data available for this section
--- OUTSIDE RECORDS SUMMARY | 2016-05-20 20:27 | XMS REPORT | Referral Summary ---
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 Discharge Diagnosis: Insulin [...] Effective Dates Status Health Status Informant Acute Active pain(Confirmed) At risk of pressure Active sore(Confirmed) Unspecified Active depressive disorder(Confirmed) Insulin pump in Active place(Confirmed) Klinefelter Active syndrome(Confirmed) DM type I(Confirmed) Active Allergies, Adverse Reactions, Alerts No Known Allergies Medications Depo-Testosterone 100 mg/mL intramuscular solution 100 mg 1 mL, IntraMuscular, q2wk, # 10 mL, 0 Refill(s) Start Date: 12/21/14 Status: Ordered NovoLOG 100 units/mL subcutaneous solution See Instructions, USE IN INSULIN PUMP 30-45 UNITS PER DAY, # 20 unknown unit, 2 Refill(s), eRx: [facility], USE IN INSULIN PUMP 30-45 UNITS PER DAY Start Date: 05/07/15 Status: Ordered Results No data available for this section Immunizations No data available for this section Procedures No data available for this section Social History Social History Type Response Smoking Status Current every day smoker Assessment and Plan Extracted from: Title: [...] preceptor. 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 Ordered: Office Visit Level 4 Est 44859 Orders: Durable Medical Equipment Rx, DME Item 3ml syringe with 11/2 inch needle uses syringe every 2 weeks 1 [id number], See Instructions, # 1 Each, 8 Refill(s), Supply insulin aspart, See Instructions, 1.0 mn per pump ICR 1:12 uses 30-45 units per day, # 2 vials, 6 Refill(s), Pharmacy: [id number], .9 mn per pump; ICR 1:12; uses 30-45 units per day testosterone, 100 mg 1 mL, IntraMuscular, q2wk, # 3 mL, 5 Refill(s) Extracted from: Title: Ambulatory Patient Education Author: Anne Collins APRN Date: 12/15/14 Family Medicine Blood Glucose Monitoring [...] 07/06/2014 Document Reviewed: ExitCare Patient Information 2015 [facility], [facility]. This information is not intended to replace advice given to you by your health care provider. Make sure you discuss any questions you have with your health care provider. No follow up information was provided. Future Scheduled TestsReferral* Return to Clinic 10/23/14 12:06 PM Referrals to Other Providers Referred by: Anne Collins APRN
--- OUTSIDE RECORDS SUMMARY | 2016-05-20 20:27 | XMS REPORT | Referral Summary ---
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 Discharge Disposition: 01-Home or Self Care Attending Physician: Anne Collins APRN Admitting Physician: Anne Collins APRN Vital Signs Most recent to 1 oldest [Reference Range]: Peripheral Pulse 76 bpm Rate [60-100 bpm] (02/01/15 8:41 AM) Blood Pressure 108/60 mmHg [90-140/60-90 mmHg] (02/01/15 8:41 AM) Problem List Condition Effective Dates Status Health Status Informant 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) Insulin pump in Active place(Confirmed) 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 ) Type 1 diabetes Active mellitus, uncontrolled(Confirm ed) Allergies, Adverse Reactions, Alerts No Known Allergies Medications Depo-Testosterone 100 mg/mL intramuscular solution 100 mg 1 mL, IntraMuscular, q2wk, # 10 mL, 0 Refill(s) Start Date: 12/21/14 Status: Ordered etodolac 400 mg oral tablet 400 mg 1 tabs, Oral, Daily, # 30 tabs, 2 Refill(s), Pharmacy: [id number], 1 tabs Oral Daily Start Date: 02/01/15 Status: Ordered Miscellaneous DME DME Item 3ml syringe with 11/2 inch needle uses syringe every 2 weeks 1 box= 100, See Instructions, # 1 Each, 8 Refill(s), Supply Start Date: 12/15/14 Status: Ordered NovoLOG 100 units/mL subcutaneous solution See Instructions, 1.05 mn per pump ICR 1:12 uses 30-45 units per day, # 2 vials, 11 Refill(s), Pharmacy: [id number], 1.05 mn per pump; ICR 1: 12; uses 30-45 units per day Start Date: 02/01/15 Status: Ordered Results Chemistry Most recent to 1 oldest [Reference Range]: T4 Free [0.7-1.5 1.1 ng/dL ng/dL] (02/01/15 12:00 AM) TSH [0.35-4.94] 1.20 (02/01/15 12:00 AM) Hgb A1c [4.1-5.6 %] 11.8 % *HI* (02/01/15 12:00 AM) eAvg Glucose 292.0 mg/dL (02/01/15 12:00 AM) Immunizations No data available for this section Procedures Procedure Date Related Diagnosis Body Site Collection of venous blood by venipuncture 02/01/15 Social History Social History Type Response Smoking Status Never smoker Assessment and Plan Extracted from: Title: Office Visit Note Author: Anne Collins APRN Date: 02/01/15 Assessment/Plan 1.Type 1 diabetes mellitus, uncontrolled 1. check blood sugars fasting, before meals and 2 hours after meals daily 2. change basal rate to 1.05, continue same ICR 3. etodolac 400mg one tab daily with 2 refills provided, must followup with PCP for management 4. monitor diet and exercise closely 5. send blood sugars every 7-10 days to office 6. monitor feet daily 7. encouraged to followup on new eye exam I discussed the patient with the preceptor. 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 Ordered: Free T4 Hemoglobin A1c Office Visit Level 4 Est 19496 Testosterone, Total, and Free-Turcios Testosterone, Total, and Free-Turcios TSH 3rd Generation Orders: etodolac, 400 mg 1 tabs, Oral, Daily, # 30 tabs, 2 Refill(s), Pharmacy : [facility], 1 tabs Oral Daily insulin aspart, See Instructions, 1.05 mn per pump ICR 1:12 uses 30-45 units per day, # 2 vials, 11 Refill(s), Pharmacy: [facility], 1.05 mn per pump; ICR 1:12; uses 30-45 units per day Extracted from: Title: Ambulatory Patient Education Author: Anne Collins APRN Date: 02/01/15 Family Medicine Blood Glucose Monitoring Monitoring your [...] 07/06/2014 Document Reviewed: ExitCare Patient Information 2015 [facility]. This information is not intended to replace advice given to you by your health care provider. Make sure you discuss any questions you have with your health care provider. No follow up information was provided. Future Scheduled TestsReferral* Return to Clinic 10/23/14 12:06 PM Referrals to Other Providers Referred by: Anne Collins APRN
--- OUTSIDE RECORDS SUMMARY | 2016-05-20 20:27 | XMS REPORT | Referral Summary ---
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 Discharge Diagnosis: Type 1 diabetes mellitus, uncontrolled Discharge Disposition: 01-Home or Self Care Attending Physician: Anne oCllins APRN Admitting Physician: Anne Collins APRN Referring Physician: Bobby Olmos MD Vital Signs Most recent to 1 oldest [Reference Range]: Peripheral Pulse 72 bpm Rate [60-100 bpm] (10/23/14 11:13 AM) Blood Pressure 108/60 mmHg [90-140/60-90 mmHg] (10/23/14 11:13 AM) Problem List Condition Effective Dates Status [...] 30-45 units per day, # 2 vials, 0 Refill(s), Pharmacy: [facility], 1.05 mn per pump; ICR 1:12; uses 30-45 units per day Start Date: 03/09/15 Status: Ordered Results Chemistry Most recent to 1 2 oldest [Reference Range]: Sodium Lvl [136-145 127 mEq/L 127 mEq/L mEq/L] *LOW* *LOW* (10/23/14: PM) (10/23/14 PM) Potassium Lvl 4.5 mEq/L 4.5 mEq/L [3.5-5.1 mEq/L] (10/23/14: PM) (10/23/14 PM) Chloride [98-107 89 mEq/L 89 mEq/L mEq/L] *LOW* *LOW* (10/23/14 PM) (10/23/14 PM) CO2 [21-31 mEq/L] 26 mEq/L 26 mEq/L (10/23/14 PM) (10/23/14 PM) BUN [7-25 mg/dL] 21 mg/dL 21 mg/dL (10/23/14 PM) (10/23/14 PM) Glucose Lvl [70-100 709 mg/dL 1 709 mg/dL 2 mg/dL] *HHI* *HHI* (10/23/14 PM) (10/23/14 PM) Creatinine Lvl 0.96 mg/dL 0.96 mg/dL [0.70-1.30 mg/dL] (10/23/14: PM) (10/23/14 PM) eGFR [>60 mL/min] >60 mL/min 3 >60 mL/min 4 (10/23/14 PM) (10/23/14 PM) Calcium Lvl 10.2 mg/dL 10.2 mg/dL [8.8-10.6 mg/dL] (10/23/14 PM) (10/23/14 PM) Testosterone 1.8 ng/dL 5 Free-Turcios [9-30 *LOW* ng/dL] (10/23/14 PM) Testosterone 94 ng/dL 6 Tot-Turcios [240-950 *LOW* ng/dL] (8/21/15 12:23 PM) 1Result Comment: Critical value called, repeated and read-back verified. Called to nurse Delgado 2Result Comment: Critical value called, repeated and read-back verified. Called to nurse Delgado 3Result Comment: Multiply eGFR results by 1.21 for race. 4Result Comment: Multiply eGFR results by 1.21 for race. 5Result Comment: ADDITIONAL INFORMATION Testing performed by [facility]. Test Performed by: [place] [address] Corporate Treasurer: Sanford Prasad II, M.D., Ph.D. 6Result Comment: ADDITIONAL INFORMATION Testing performed by Liquid Chromatography-Tandem Mass Spectrometry (LC-MS/MS). Test Performed by: [place] [address] Corporate Treasurer: Sanford Prasad II, M.D., Ph.D. 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 check blood sugars fasting, before meals and 2 hours after meals daily 2. 6 units of novolog given sq while at exam, extra water provided 3. restart insulin pump now and adjust mn basal to .90 4. continue same ICR ac meals 5. need stat BMP 6. will recheck testosterone levels 7. glucagon kit called to pharmacy 8. schedule for Type I diabetic class 9. see Dr. Madrid in one month I discussed the patient with the preceptor. 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 Following your diabetes plan and taking care of yourself can reduce your risk of serious or life-threatening complications. Below, you will find certain things you can do to prevent diabetes problems. MANAGE YOUR DIABETES Follow your caregiver's, nurse educator's, and dietitian's instructions for managing your diabetes. They will teach you the basics of diabetes care. They can help answer questions you may have. Learn about diabetes and make healthy choices regarding eating and physical activity. Monitor your blood glucose level regularly. Your caregiver will help you decide how often to check your blood glucose level depending on your treatment goals and how well you are meeting them. DO NOT SMOKE Smoking and diabetes are a dangerous combination. Smoking raises your risk for diabetes problems. If you quit smoking, you will lower your risk for heart attack, stroke, nerve disease, and kidney disease. Your cholesterol and your blood pressure levels may improve. Your blood circulation will also improve. If you smoke, ask your caregiver for help in quitting. KEEP YOUR BLOOD PRESSURE UNDER CONTROL Keeping your blood pressure under control will help prevent damage to your eyes , kidneys, heart, and blood vessels. Blood pressure consists of two numbers. The top number should be below 120, and the bottom number should be below 80 ( 120/80). Keep your blood pressure as close to these numbers as you can. If you already have kidney disease, you may want even lower blood pressure to protect your kidneys. Talk to your caregiver to make sure that your blood pressure goal is right for your needs. Meal planning, medicines, and exercise can help you reach your blood pressure target. Have your blood pressure checked at every visit with your caregiver. KEEP YOUR CHOLESTEROL UNDER CONTROL Normal cholesterol levels will help prevent heart disease and stroke. These are the biggest health problems for people with diabetes. Keeping cholesterol levels under control can also help with blood flow. Have your cholesterol level checked at least once a year. Meal planning, exercise, and medicines can help you reach your cholesterol targets. SCHEDULE AND KEEP YOUR ANNUAL PHYSICAL EXAMS AND EYE EXAMS Your caregiver will tell you how often he or she wants to see you depending on your plan of treatment. It is important that you keep these appointments so that possible problems can be identified early and complications can be avoided or treated. Every visit with your caregiver should include your weight, blood pressure , and an evaluation of your blood glucose control. Your hemoglobin A1c should be checked: At least twice a year if you are at your goal. Every 3 months if there are changes in treatment. If you are not meeting your goals. Your blood lipids should be checked yearly. You should also be checked yearly to see if you have protein in your urine (microalbumin). Schedule a dilated eye exam if you have type 1 diabetes within 5 years of your diagnosis and then yearly. Schedule a dilated eye exam if you have type 2 diabetes at diagnosis and then yearly. All exams thereafter can be extended to every 2 to 3 years if one or more exams have been normal. KEEP YOUR VACCINES CURRENT The flu vaccine is recommended yearly. The formula for the vaccine changes every year and needs to be updated for the best protection against current viruses. In addition, you should get a vaccination against pneumonia at least once in your life. However, there are some instances where another vaccine is recommended. Check with your caregiver. TAKE CARE OF YOUR FEET Diabetes may cause you to have a poor blood supply (circulation) to your legs and feet. Because of this, the skin may be thinner, break easier, and heal more slowly. You also may have nerve damage in your legs and feet causing decreased feeling. You may not notice minor injuries to your feet that could lead to serious problems or infections. Taking care of your feet is very important. Visual foot exams are performed at every routine medical visit. The exams check for cuts, injuries, or other problems with the feet. A comprehensive foot exam should be done yearly. This includes visual inspection as well as assessing foot pulses and testing for loss of sensation. You should also do the following: Inspect your feet daily for cuts, calluses, blisters, ingrown toenails, and signs of infection, such as redness, swelling, or pus. Wash and dry your feet thoroughly, especially between the toes. Avoid soaking your feet regularly in hot water baths. Moisturize dry skin with lotion, avoiding areas between your toes. Cut toenails straight across and file the edges. Avoid shoes that do not fit well or have areas that irritate your skin. Avoid going barefooted or wearing only socks. Your feet need protection. TAKE CARE OF YOUR TEETH People with poorly controlled diabetes are more likely to have gum (periodontal ) disease. These infections make diabetes harder to control. Periodontal diseases, if left untreated, can lead to tooth loss. [place] your teeth twice a day, floss, and see your dentist for checkups and cleaning every 6 months, or 2 times a year. ASK YOUR CAREGIVER ABOUT TAKING ASPIRIN Taking aspirin daily is recommended to help prevent cardiovascular disease in people with and without diabetes. Ask your caregiver if this would benefit you and what dose he or she would recommend. DRINK RESPONSIBLY Moderate amounts of alcohol (less than 1 drink per day for adult women and less than 2 drinks per day for adult men) have a minimal effect on blood glucose if ingested with food. It is important to eat food with alcohol to avoid hypoglycemia. People should avoid alcohol if they have a history of alcohol abuse or dependence, if they are , and if they have liver disease, pancreatitis, advanced neuropathy, or severe hypertriglyceridemia. LESSEN STRESS Living with diabetes can be stressful. When you are under stress, your blood glucose may be affected in two ways: Stress hormones may cause your blood glucose to rise. You may be distracted from taking good care of yourself. It is a good idea to be aware of your stress level and make changes that are necessary to help you better manage challenging situations. Support groups, planned relaxation, a hobby you enjoy, meditation, healthy relationships, and exercise all work to lower your stress level. If your efforts do not seem to be helping, get help from your caregiver or a trained mental health professional. Document Released: 11/07/2011 Document Revised: 02/05/2013 Document Reviewed: ExitCare Patient Information 2015 [employer]. This information is not intended to replace advice given to you by your health care provider. Make sure you discuss any questions you have with your health care provider. No follow up information was provided. Future Scheduled TestsReferral* Return to Clinic 10/23/14 12:06 PM Referrals to Other Providers Referred by: Anne Collins APRN
--- OUTSIDE RECORDS SUMMARY | 2016-05-20 20:27 | XMS REPORT | Referral Summary ---
Author Author [facility] Organization [facility] Address Unknown Phone Unavailable Care Team Providers Care Inspector Type Name Role Phone No PCP, Pt States Primary Care Physician [phone] Encounter [facility] Date(s): 12/03/15 - 12/07/15 [facility] [address] [place] [address] Discharge Diagnosis: DKA (diabetic ketoacidoses) Discharge Disposition: 01-Home or Self Care Attending Physician: Sarkis Ring MD Admitting Physician: Sarkis Ring MD Vital Signs Most recent to 1 oldest [Reference Range]: Temperature Oral 36.9 degC [35.8-37.3 degC] (12/07/15 12:46 PM) Temperature Temporal 36.6 degC Artery [36.3-37.8 (12/05/15 8:00 AM) degC] Peripheral Pulse 103 bpm Rate [60-100 bpm] *HI* (12/07/15 12:46 PM) Heart Rate Monitored 69 bpm [60-100 bpm] (12/05/15 1:30 PM) Respiratory Rate 18 br/min [14-20 br/min] (12/07/15 12:46 PM) Blood Pressure 106/69 mmHg [90-140/60-90 mmHg] (12/07/15 12:46 PM) Mean Arterial 85 mmHg Pressure, Cuff (12/05/15 1:30 PM) SpO2 98 % (12/07/15 12:46 PM) Remote Telemetry Ongoing (12/04/15 4:00 AM) Problem List Condition Effective Dates Status [...] Adverse Reactions, Alerts No Known Allergies Medications No Known Medications Results Blood Gases Most recent to 1 oldest [Reference Range]: Venous pH 7.19 [7.30-7.40] *LLOW* (12/03/15 5:29 PM) Venous PCO2 [45-55 36 mmHg mmHg] *LOW* (12/03/15 5:29 PM) Venous PO2 [15-35 53 mmHg mmHg] *HI* (12/03/15 5:29 PM) HCO3 Artis [24-28 13 mEq/L mEq/L] *LOW* (12/03/15 5:29 PM) Base Excess Artis -14 [0-4] *LOW* (12/03/15 5:29 PM) O2 Sat Artis 75.3 % (12/03/15 5:29 PM) O2 Panel Artis Room Air (12/03/15 5:29 PM) Spec Site Artis Peripheral IV (12/03/15 5:29 PM) Hematology Most recent to 1 oldest [Reference Range]: WBC [4.8-10.8 5.8 10*3/uL 10*3/uL] (12/07/15 6:45 AM) RBC [4.60-6.20] 4.29 *LOW* (12/07/15 6:45 AM) Hgb [14.0-18.0 13.4 gm/dL gm/dL] *LOW* (12/07/15 6:45 AM) Hct [42.0-52.0 %] 38.4 % *LOW* (12/07/15 6:45 AM) MCV [82.0-99.0 fL] 89.5 fL (12/07/15 6:45 AM) MCH [27.0-32.0 pg] 31.2 pg (12/07/15 6:45 AM) MCHC [32.0-36.0 34.9 gm/dL gm/dL] (12/07/15 6:45 AM) RDW [11.5-14.5 %] 12.6 % (12/07/15 6:45 AM) Platelet [150-400 171 10*3/uL 10*3/uL] (12/07/15 6:45 AM) MPV [9.4-12.3 fL] 11.0 fL (12/07/15 6:45 AM) Immature 0.7 % Granulocytes (12/07/15 6:45 AM) [0.0-1.0 %] Neutrophils [51-75 37 % %] *LOW* (12/07/15 6:45 AM) Lymphocytes [20-46 49 % %] *HI* (12/07/15 6:45 AM) Monocytes [4-11 %] 6 % (12/07/15 6:45 AM) Eosinophils [0-4 %] 7 % *HI* (12/07/15 6:45 AM) Basophils [0-2 %] 1 % (12/07/15 6:45 AM) Neutro Absolute 2.10 10*3 [1.90-7.00 10*3] (12/07/15 6:45 AM) Lymph Absolute 2.83 10*3 [0.80-3.30 10*3] (12/07/15 6:45 AM) [place] Absolute 0.32 10*3 [0.30-1.00 10*3] (12/07/15 6:45 AM) Eos Absolute 0.42 10*3 [0.00-0.50 10*3] (12/07/15 6:45 AM) Baso Absolute 0.04 10*3 [0.00-0.20 10*3] (12/07/15 6:45 AM) Chemistry Most recent to 1 oldest [Reference Range]: Sodium Lvl [136-144 136 mEq/L mEq/L] (12/07/15 6:45 AM) Potassium Lvl 4.0 mEq/L [3.6-5.1 mEq/L] (12/07/15 6:45 AM) Chloride [99-109 99 mEq/L mEq/L] (12/07/15 6:45 AM) CO2 [22-32 mEq/L] 28 mEq/L (12/07/15 6:45 AM) AGAP [3-20] 9 (12/07/15 6:45 AM) BUN [4-20 mg/dL] 23 mg/dL *HI* (12/07/15 6:45 AM) Glucose Lvl [70-100 245 mg/dL mg/dL] *HI* (12/07/15 6:45 AM) Creatinine Lvl 0.61 mg/dL [0.64-1.27 mg/dL] *LOW* (12/07/15 6:45 AM) eGFR [>60] >60 1 (12/07/15 6:45 AM) Calcium Lvl 9.1 mg/dL [8.6-10.0 mg/dL] (12/07/15 6:45 AM) Albumin Lvl [3.5-4.8 3.3 gm/dL gm/dL] *LOW* (12/07/15 6:45 AM) Magnesium Lvl 1.8 mg/dL [1.8-2.5 mg/dL] (12/07/15 6:45 AM) Phosphorus [2.4-4.7 5.5 mg/dL 2 mg/dL] *HI* (12/07/15 6:45 AM) Sodium Venous 131 mEq/L [136-144 mEq/L] *LOW* (12/03/15 4:03 PM) Potassium Venous 4.8 mEq/L 3 [3.6-5.1 mEq/L] (12/03/15 4:03 PM) Calcium Ionized 1.27 mmol/L Venous [1.19-1.41 (12/03/15 4:03 PM) mmol/L] Total CO2 Venous 18 mEq/L [25-29 mEq/L] *LOW* (12/03/15 4:03 PM) HGB Venous NPT 16.3 gm/dL [14.0-18.0 gm/dL] (12/03/15 4:03 PM) HCT Venous 48.0 % [42.0-52.0 %] (12/03/15 4:03 PM) Glucose Venous 632 mg/dL [70-100 mg/dL] *HHI* (12/03/15 4:03 PM) BUN Venous [4-20] 23 *HI* (12/03/15 4:03 PM) Creatinine Venous 0.8 mg/dL [0.7-1.2 mg/dL] (12/03/15 4:03 PM) Venous CL [99-109 97 mEq/L mEq/L] *LOW* (12/03/15 4:03 PM) Anion Gap, Artis 16 [3-20] (12/03/15 4:03 PM) Blood Glucose, 170 mg/dL Capillary [70-100 *HI* mg/dL] (12/07/15 12:52 PM) 1Result Comment: Multiply eGFR results by 1.21 for race. 2Result Comment: High dosages of liposomal Amphotericin B (AmBisome) therapy or other drug preparations that use a liposomal envelope to facilitate drug delivery may cause falsely elevated results for phosphorus. 3Result Comment: This test was performed on a whole blood specimen. The presence or absence of hemolysis cannot be assessed. Hemolysis can falsely elevate potassium levels. Normals are for venous specimens only. Immunizations No data available for this section Procedures Procedure Date Related Diagnosis Body Site Adenoidectomy Social History Social History Type Response Smoking Status Current every day smoker Assessment and Plan No data available for this section
--- OUTSIDE RECORDS SUMMARY | 2016-05-20 20:27 | XMS REPORT | Referral Summary ---
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
--- OUTSIDE RECORDS SUMMARY | 2016-05-20 20:27 | XMS REPORT ---
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
[2016-05-20 20:30] VITALS: Ht 185.4 cm; Wt 53.1 kg
[2016-05-20] MEDS ORDERED: TRAZ-173 PO (20:45)
[2016-05-20] MEDS ORDERED: INSU100V13 (20:45)
--- NOTE | 2016-05-20 21:05 | ERPDOC ---
Departure Disposition Decision Date: May 20, 2016 Disposition Decision Time: 21:23 Disposition: 01 DISCHARGED HOME, SELF-CARE Impression Impression Impression: Primary Impression: Fracture of proximal phalanx of digit of right hand Severity: Moderate Condition: Stable Seen By: Mid-level only Patient Instructions: Finger Fracture (ED) Problems/Meds/Labs Reviewed?: Yes Medications reviewed and manag: Yes Additional Instructions: Dannielle tape the right ring finger to the pinky finger. Wear the splint as directed until you follow up this week with your primary care provider. You have a possible fracture of the right ring finger of the proximal phalanx. Ice and elevate as needed. Follow up care ordered?: Yes Mental Status: Alert, Oriented HPI General Chief Complaint: Upper Extremity Injury Stated Complaint: HAND PAIN Time Seen by Provider: 20:44 Source: patient Exam Limitations: no limitations HPI Hand/Forearm Initial Comments He was at work last night and had the right hand accidentally shut in the freezer door. He is having pain in the right ring finger over the MCP joint and this is worse with flexion and extension. He has had a right pinky finger fracture in the past. Occurred At: home Onset: Rapid Duration: 12-24 hrs Severity: moderate Location: right: hand Method of Injury: direct blow Associated Symptoms: pain with extension, pain with flexion (right ring finger and pinky finger), DENIES: bruising, numbness, pain with grasp, pallor, red streaks, redness, swelling, weakness Allergies: Coded Allergies: No Known Allergies (Unverified , 05/20/16) Past History Past Medical History Metabolic: diabetes Surgical History Denies Surgeries Family History Family History: Negative Vaccines Hx Influenza Vaccination: No Social History Tobacco Usage: none Alcohol Usage: none Drug Usage: none IV Drug Use: No Review of Systems Constitutional Constitutional: DENIES: chills, fever Musculoskeletal General: joint pain (right MCP joint), pain (right MCP joint), tenderness ( right MCP joint) Integumentary Skin: DENIES: color change, itching, rash Exam General General Nourishment: well nourished, well developed, appears stated age, no acute distress, adult General Body Habitus: well groomed Vital Signs: RN Vital Signs have been reviewed: Yes, Temperature: 98.4, Source : Temporal, Heart Rate: 102, Respiratory Rate: 16, BP: 118/58, Pulse Oximetry: 94 Height (Feet): 6 Height (Inches): 1.00 Fastrak Hand/Forearm Hand/Forearm : Upper Extremity: Right Elbow: extension intact, flexion intact, NOT FOUND: deformity, ecchymosis, erythema, swelling, tender Forearm: pronation intact, supination intact, NOT FOUND: deformity, ecchymosis, erythema, laceration, swelling, tender Wrist: ROM intact, NOT FOUND: deformity, ecchymosis, erythema, snuff box tenderness, swelling, tender, thenar eminence tender Hand: tender (TTP over the right 4th MCP joint without swelling or erythema) , NOT FOUND: deformity, ecchymosis, erythema, swelling Fingers: cap refill <2sec ea digit, impaired extension (right ring finger), impaired flexion (right ring finger), impaired grasp (right ring finger), soft touch intact, NOT FOUND: deformity, ecchymosis, erythema, impaired abduction, impaired adduction, laceration, nail avulsion, rotational deformity, subungual hematoma, swelling, tender Radial Pulse: 2+ Neurologic RN Documented GCS Eye Opening: Verbal: Motor: Total: Differential Diagnoses Considering: Contusion, Fracture, Sprain, Strain Procedures Procedures Performed Procedures Performed: Splinting Splinting Procedure Splint : Site: right ring finger Pre-placement NV: FOUND: cap refill < 3 sec, good movement, good sensation Hand-Made Type: metal splint Splint: volar finger Post-placement NV: FOUND: cap refill < 3 sec, good sensation Applied by: PA/ENEDELIA Progress Results/Orders Orders Procedure Category Date Status Time Hand Right 3 View RAD 05/20/16 Taken Progress Progress Xray does show a possible fracture of the distal portion of the right proximal phalanx on the ring finger. Will dannielle tape the finger to the pinky finger and have him wear a metal splint to immobilize the finger. Have him follow up with his primary care provider for reevaluation and rexray of the finger. Xray Xray : Reason for Exam: right ring finger pain Xray: Hand R Interpretation: Abnormal (possible right 4th digit, distal portion, proximal phalanx fracture) SAYRA MALAGON APRN May 20, 2016 21:05
[2016-05-20 21:57] VITALS: BP 118/58; PULSE 102; RESP 16; TEMP 98.4; O2SAT 94
--- NOTE | 2016-05-21 13:30 | DI ---
Indication: ITS.REASON: right hand injury PROCEDURE: HAND RIGHT 3 VIEW: Encounter: Initial Comparison: None Findings: There is no acute fracture, dislocation or malalignment identified. Evidence of old boxer's fracture of the fifth metacarpal and possible healed fracture deformity of the small finger proximal phalanx base. Impression: No acute osseous abnormality. If there is continued pain, repeat radiographs in 10-14 days may be helpful to evaluate for signs of healing fracture. .
== END 2016-05-20 21:57 | disposition home or self-care (01) ==
LOC: ED 20:23
DX: S62.614A Displaced fracture of proximal phalanx of right ring finger, initial encounter for closed fracture (principal); W23.0XXA Caught, crushed, jammed, or pinched between moving objects, initial encounter; Y93.89 Activity, other specified; Y92.9 Unspecified place or not applicable; Y99.0 Civilian activity done for income or pay

== ENCOUNTER 2016-07-10 12:31 | Emergency (ER) | payer BC, OTHER ==
[~2016-07-10] VITALS: Ht 185.4 cm; Wt 59.9 kg
[~2016-07-10 12:31] MED LIST changes: +INSU100V13; +TRAZ-173 PO; -[UNRECOGNIZED DRUG - CODE]
[2016-07-10 12:35] VITALS: Ht 185.4 cm; Wt 59.9 kg
--- OUTSIDE RECORDS SUMMARY | 2016-07-10 12:38 | XMS REPORT | Continuity of Care Document ---
Author Author [facility] Organization [facility] Address Unknown Phone Unavailable Support Name Relationship Address Phone GALILEA KAT MD Caregiver [address] [place] [address] Unavailable KATHY MCGEE Next Of Kin [address] [place] [address] Insurance Providers Guarantor Kathy Mcgee Address [address] [place] [address] Email [id number] Payer Medicaid [place] Policy Number [id number] Subscriber's Name AntoniHector Tangela Relationship 18 Self Effective Date 12 Expiration Date 12 Payer [facility] Preferred Policy Number [id number] Subscriber's Name Sonu Barragan Relationship 17 Step Child Group Number [id number] Advance Directives Directive Response Recorded Date/Time Advanced Directives Type None 05/20/16 8:30pm Chief Complaint and Reason for Visit Chief Complaint Upper Extremity Injury Reason for Visit Fracture of proximal phalanx of digit of right hand Problems Past Problems Medical Problem Onset Date Fracture of proximal phalanx of digit of right hand Unknown Medications Current Home Medications Medication Dose Units Route Directions Days Qty Instructions Start Date Insulin Aspart (Novolog) 100 Unit/Ml Inj 1 Unit As Needed INSULIN PUMP 05/20/16 Trazodone Hcl 100 Mg Tablet 100 Mg Oral Bedtime as needed for Prn Orders 05/20/16 Social History Social History Problem Response Recorded Date/Time Onset Date Status Tobacco Usage none 05/20/2016 9:07pm Not Applicable Not Applicable Query Response Start Date Stop Date Smoking Status Never smoker Hospital Discharge Instructions No hospital discharge instructions. Plan of Care Discharge Date 05/20/16 9:57pm Disposition 01 DISCHARGED HOME, SELF-CARE Condition at Discharge Stable Instructions/Education Provided Finger Fracture (ED) Prescriptions See Medication Section Additional Instructions/Education Addy tape the right ring finger to the pinky finger. Wear the splint as directed until you follow up this week with your primary care provider. You have a possible fracture of the right ring finger of the proximal phalanx. Ice and elevate as needed. Care Plan and Goals Physician Care Plan Problem:Right finger fracture Goal: Follow up with primary care provider Instructions: Take medications and follow care plan as discussed/written Functional Status No functional status results. Allergies, Adverse Reactions, Alerts No known allergies. Immunizations Query Response on File Recorded Date/Time Hx Influenza Vaccination No 03/02/12 7:11pm Hx Influenza Vaccination No 03/02/12 7:11pm Influenza Vaccine Hx NO 05/20/16 8:41pm Tdap Vaccine Hx UNKNOWN 05/20/16 8:41pm Vital Signs Acute Vital Signs Vital Response Date/Time Temperature (Fahrenheit) 98.4 deg F (96.8 - 99.1) 05/20/2016 9:57pm Temperature (Calculated Celsius) 36.10390 degrees C (36.0 - 37.3) 05/20/2016 9:57pm Pulse Rate (adult) 102 bpm (60 - 100) 05/20/2016 9:57pm Respiratory Rate 16 breaths/min (10 - 20) 05/20/2016 9:57pm O2 Sat by Pulse Oximetry 94 % (90 - 100) 05/20/2016 9:57pm Blood Pressure 118/58 mm Hg 05/20/2016 9:57pm Height (Feet) 6 feet 05/20/2016 8:30pm Height (Inches) 1.00 inches 05/20/2016 8:30pm Weight (Kilograms) 53.100 kg 05/20/2016 8:30pm Body Mass Index (BMI) 15.0 05/20/2016 8:30pm Results No known relevant diagnostic tests, laboratory data and/or discharge summary. Procedures No known history of procedures. Encounters Encounter Location Arrival/Admit Date Discharge/Depart Date Attending Provider Departed Emergency Room [facility] 05/20/16 8:23pm 05/20/16 9: 57pm GALILEA KAT MD Recent Diagnosis
[2016-07-10] MEDS ORDERED: IBUP-1724 PO (12:44)
--- NOTE | 2016-07-10 12:53 | ERPDOC ---
Departure Disposition Decision Date: July 10, 2016 Disposition Decision Time: 13:24 Disposition: 01 DISCHARGED HOME, SELF-CARE Impression Impression Impression: Primary Impression: Contusion of finger, right Encounter type: initial encounter Finger: ring finger Damage to nail status : without damage Qualified Codes: S60.041A - Contusion of right ring finger without damage to nail, initial encounter Severity: Mild Condition: Improved Seen By: Physician only Referrals: Your Doctor 1 Day Patient Instructions: Contusion in Adults (ED) Problems/Meds/Labs Reviewed?: Yes Medications reviewed and manag: Yes Follow up care ordered?: Yes Mental Status: Alert, Oriented Scripts Ibuprofen (Ibuprofen) 400 Mg Tablet 1 TAB PO TID for pain, #30 TAB 0 Refills Prov: ZONIA CALIXTO 07/10/16 HPI General Chief Complaint: Upper Extremity Injury Stated Complaint: POSSIBLE BROKEN FINGER Time Seen by Provider: 12:39 Source: patient (Patient presents to the ER with right hand pain, after injuring the extremity playing baseball yesterday. Pain is to the 4th digit of his right hand, without obvious trauma.), other (Patient was seen in the ER in Mid-May for a similar injury, without acute injury found. Patient has not followed with his PCP) Exam Limitations: no limitations HPI Hand/Forearm Occurred At: home Onset: Changing over time Duration: 12-24 hrs Pain Scale: Now & Worst: 9/10 Severity: moderate Location: right: 4th finger Method of Injury: direct blow, sports injury Modifying Factors: IMPROVES WITH: immobilization, rest, WORSE WITH: movement Associated Symptoms: pain with extension, pain with flexion, pain with grasp, DENIES: bruising, numbness, pallor, red streaks, redness, swelling, weakness Allergies: Coded Allergies: No Known Allergies (Unverified , 07/10/16) Past History Past Medical History Metabolic: diabetes Surgical History Denies Surgeries Family History Family History: Negative Vaccines Hx Influenza Vaccination: No Social History Tobacco Usage: none Alcohol Usage: none Drug Usage: none IV Drug Use: No Residence: home Record Review Pertinent history updated: Yes Review of Systems Constitutional Constitutional: DENIES: chills, fever Eyes Lids/Accessories: DENIES: erythema, swelling ENMT Ears: DENIES: erythema, pain Balance: DENIES: ataxia, vertigo Sinuses: DENIES: congestion, rhinorrhea Mouth/Throat: DENIES: sore throat Cardiovascular Cardiac: DENIES: chest pain, dyspnea on exertion, orthopnea Rhythm/Rate: DENIES: tachycardia Pulmonary Respiratory: DENIES: cough, dyspnea, sputum GI Upper Abdomen: DENIES: nausea, pain, vomiting Lower Abdomen: DENIES: constipation, diarrhea, pain General: DENIES: dysuria Musculoskeletal General: pain, see HPI, DENIES: cramps, joint pain, joint swelling, tenderness , weakness Integumentary Skin: DENIES: color change, itching, rash Neurological General: DENIES: ataxia, change in strength, headache, numbness, poor coordination, seizures, syncope, vertigo, weakness Psychiatric Psychiatric: DENIES: anxiety, depression, nervousness Hematologic/Lymphatic Hematologic/Lymphatic: DENIES: anemia Allergic/Immunological Allergic/Immunoligical: DENIES: sneezing All other Systems All Other Systems: Reviewed and Negative Exam General General Nourishment: well nourished, well developed, appears stated age, adult , thin General Body Habitus: well groomed Vital Signs: RN Vital Signs have been reviewed: Yes Height (Feet): 6 Height (Inches): 1.00 Fastrak Hand/Forearm Hand/Forearm : Upper Extremity: Right Elbow: extension intact, flexion intact, NOT FOUND: deformity, ecchymosis, erythema, laceration, swelling, tender Forearm: pronation intact, supination intact, NOT FOUND: deformity, ecchymosis, erythema, laceration, swelling, tender Wrist: ROM intact, NOT FOUND: deformity, ecchymosis, erythema, snuff box tenderness, swelling, tender, thenar eminence tender Hand: tender (4th digit right), NOT FOUND: deformity, ecchymosis, erythema, laceration, swelling Fingers: cap refill <2sec ea digit, soft touch intact, tender (4th digit right), NOT FOUND: deformity, ecchymosis, erythema, impaired abduction, impaired adduction, impaired extension, impaired flexion, impaired grasp, laceration, nail avulsion, rotational deformity, subungual hematoma, swelling Radial Pulse: 2+ Ulnar Pulse: 2+ Eyes (brief) Eyes Brief: found: EOMI, PERRL ENMT (brief) ENMT Brief: FOUND: mucosa moist Neck (brief) Neck Brief: FOUND: trachea midline, NOT FOUND: tenderness, tracheal deviation Respiratory (brief) Respiratory Brief: FOUND: clear all amado, equal bilaterally Cardiovascular (brief) Cardiac Brief: FOUND: regular rate, regular rhythm Capillary Refill: <2 sec Abdomen (brief) Abdominal Brief: FOUND: bowel normo active x4, soft, NOT FOUND: distended, tender Musculoskeletal (brief) Musculoskeletal Brief: FOUND: tenderness (4th digit right hand), NOT FOUND: deformity, loss of motion, spasm Integumentary (brief) Integumentary Brief: FOUND: pink, warm Neurologic (brief) Neurological Brief: FOUND: CN w/o gross def to obs, gait w/o gross def to obs, motor-no gross deficits, sensory-no gross deficits, NOT FOUND: ataxia Neurologic RN Documented GCS Eye Opening: Verbal: Motor: Total: Psychiatric (brief) Psychiatric Brief: FOUND: alert, attentive, normal affect, oriented Differential Diagnoses Considering: Contusion, Dislocation, Fracture, Sprain, Strain, Other Progress Results/Orders Orders Procedure Category Date Status Time Fingers Right 2 View RAD 07/10/16 Resulted MIN Premade Splint EDM 07/10/16 Transmitted 13:23 Progress Progress Patient refused pain medications in the ER Xray Xray : Reason for Exam: Fingers right hand Xray: Finger(s) R Interpretation: Normal, Reviewed Written Report ZONIA CALIXTO DO July 10, 2016 12:53
--- NOTE | 2016-07-10 13:14 | DI ---
Indication: ITS.REASON: pain 4th digit right PROCEDURE: FINGERS RIGHT 2 VIEW MIN: Encounter: Initial Comparison: None Findings: There is no acute fracture, dislocation or malalignment identified. There is an old healed boxer's fracture of the distal fifth metacarpal. Impression: No acute osseous abnormality. .
[2016-07-10] MEDS ORDERED: IBUP-1546 PO (13:38)
[2016-07-10 13:57] VITALS: BP 98/55; PULSE 61; RESP 18; TEMP 98.2; O2SAT 99
== END 2016-07-10 13:57 | disposition home or self-care (01) ==
LOC: ED 12:31
DX: S60.041A Contusion of right ring finger without damage to nail, initial encounter (principal); X58.XXXA Exposure to other specified factors, initial encounter; Y93.64 Activity, baseball; Y92.320 Baseball field as the place of occurrence of the external cause; Y99.8 Other external cause status

== ENCOUNTER 2017-09-12 23:08 | Inpatient (IN) ==
[2017-09-12] MEDS ORDERED: ONDANSETRON 4 MG/2 ML INJECTION IVP ONE (23:41)
[2017-09-12] MEDS ORDERED: NS 1,000 ML IV ONE (23:41)
[2017-09-12] MEDS ORDERED: INSULIN REGULAR, HUMAN 100 UNIT/ML INJECTION IV ONE (23:41)
[2017-09-13] MEDS: SALINE FLUSH 10ml SYRINGE IVF PRN ×2 (00:07→00:41)
--- NOTE | 2017-09-13 00:18 | Emergency Department Report ---
General Adult HPI - General Chief complaint: Medical Emergency Stated complaint: Mirgraine, upset stomach, weak Time Seen by Provider: 09/12/17 23:41 - History of Present Illness HPI narrative: 21-year-old male presents with blood sugar greater than 500. Patient states that he was seen earlier today for hyperglycemia and given a prescription for insulin, but when he went home he fell asleep and not wake up until after the pharmacy was closed. Also states that he had insulin, but when cleaning the house somebody threw it away not realizing that he needed to use it. No fever or chills, patient has been weak, urinating considerably. Has not had a recent follow up with primary care or endocrinology. - Related Data Previous Rx's Medication Instructions Recorded Insulin Aspart [NovoLOG] 1 unit SQ PRN #1 vial 09/12/17 Allergies Allergy/AdvReac Type Severity Reaction Status Date / Time No Known Allergies Allergy Verified 09/13/17 01:16 Review of Systems All systems: reviewed and negative except as stated PFSH Patient Stated Medical History Migraine Yes: intermittently Seizures Yes Diabetes Mellitus Type 1 Yes Depression Yes Other Behavioral Health Yes: [facility] Medical History (Last Updated 01/22/17 @ 14:11 by OGLD Schulte) Diabetes (Acute Medical) Surgical History: * None - Social History Smoking status: Current every day smoker Substance use type: does not use Alcohol intake frequency: does not drink Physical Exam - Limitations Limitations: no limitations - General General appearance: lethargic - Normal Exams: Head:: Normocephalic without trauma Chest/Respirations:: Clear all amado, with good airflow, and symmetry bilaterally Cardiovascular:: Regular rate and rhythm, without murmur or gallop, Pulses 2+ all extremities, capillary refill, <2 seconds all extremities Abdomen:: Bowel sounds positive, soft, non-tender, non-distended, no hepatosplenomegaly, masses or bruits noted Neurological:: and oriented, cranial nerves, motor/sensory/cerebellar, exams w/ o gross deficits, to observation Course Vital Signs Temperature 98.6 F 09/12/17 23:30 Pulse Rate 72 09/12/17 23:30 Respiratory Rate 15 09/12/17 23:30 Blood Pressure 97/47 09/12/17 23:30 Pulse Oximetry 99 09/12/17 23:30 Temperature 98.6 F 09/12/17 23:30 Pulse Rate 72 09/12/17 23:30 Respiratory Rate 15 09/12/17 23:30 Blood Pressure 97/47 09/12/17 23:30 Pulse Oximetry 99 09/12/17 23:30 Medical Decision Making - MDM Narrative Medical decision making narrative: Peripheral IV placed with 1 L normal saline bolus. Blood sugars ordered with glucometer and blood sugar greater than 500. Patient given 10 units insulin IV while labs were being run. CBC and CMP return with isolated elevated glucose. Beta hydroxybutyrate 4.9. A second liter of normal saline was started for bolus and 10 more units of insulin were given V. Hospitalist service was consulted as patient will require ICU admission and continued management of DKA. Insulin drip ordered. Patient is stable on transfer. - Differential Diagnosis hyperglycemia, DKA, dehydration - Medical Records Medical records reviewed: Yes: I reviewed the patient's medical records. - Lab Data Lab results reviewed: Yes: I reviewed the patient's lab results. Result diagrams: 09/12/17 00:08 09/13/17 09:44 Lab Results 09/12/17 Range/Units 23:37 Glucometer > 500 (65-110) mg/dL - EKG Data EKG #1 EKG attestation: Yes: I reviewed and interpreted this EKG. EKG results narrative: 78 bpm EKG shows normal: sinus rhythm Rate: normal Rhythm: NSR [place]/QRS: normal Interpretation: no acute changes Disposition Clinical Impression: DKA (diabetic ketoacidoses) Disposition: 02 To [facility] Condition: Improved Time of Disposition: 16:33 - Seen By: physician
[2017-09-13] MEDS ORDERED: INSULIN REGULAR, HUMAN 100 UNIT in NS 100 ML IV PRN ×2 (00:35→01:39)
[2017-09-13] MEDS ORDERED: INSULIN REGULAR, HUMAN 100 UNIT/ML INJECTION IVP ONE (00:35)
[2017-09-13] MEDS ORDERED: NS 1,000 ML IV ONE (00:56)
[2017-09-13] MEDS ORDERED: NS 1,000 ML IV SCH (01:39)
[2017-09-13 02:06] VITALS: BMI 15.7
[2017-09-13] MEDS ORDERED: POTASSIUM CHLORIDE INJ 20 MEQ, POTASSIUM PHOSPHATE (mEq) 20 MEQ in NS 1,000 ML IV SCH (02:18)
--- NOTE | 2017-09-13 03:00 | History & Physical Report ---
History of Present Illness Date: 09/13/17 Chief complaint: N/V/ dizziness HPI: The pt states his insulin was accidently thrown away at home yesterday, he went to the ER the morning of , was given a prescription for insulin but he went home and didn't wake up until after it closed. He told me it cost $32 which was more than he had. He has a car but didn't think to call his PCP or screen tender helper to get samples of insulin. He started feeling lightheaded , [place], nausea around 0900 this morning, no diarrhea or vomiting. Review of Systems - Constitutional Constitutional: Present: headache(s), lethargy. Absent: anorexia, fever(s) - EENMT Eyes: Present: change in vision - Cardiovascular Cardiovascular: Absent: chest pain - Gastrointestinal Gastrointestinal: Present: nausea. Absent: abdominal pain, diarrhea, vomiting - Neurological Neurological: Present: dizziness. Absent: confusion, convulsions, numbness Past Medical History Medical History: Medical History (Last Updated 01/22/17 @ 14:11 by GOLD Schulte) Diabetes Surgical History: * None Family History: No Significant Family History - Social History Smoking status: Current every day smoker Medications Home Medications Medication Instructions Recorded Confirmed Type Insulin Aspart [NovoLOG] 1 unit SQ PRN #1 vial 09/12/17 09/13/17 Rx Allergies Allergy/AdvReac Type Severity Reaction Status Date / Time No Known Allergies Allergy Verified 09/13/17 01:16 Exam Vital Signs: Temperature 97.8 F 09/13/17 01:38 Pulse Rate 55 L 09/13/17 02:16 Respiratory Rate 21 09/13/17 02:16 Blood Pressure 96/52 09/13/17 02:15 Pulse Oximetry 100 09/13/17 02:16 Height/Weight/BMI: Height 1.83 m Weight 52.6 kg Body Mass Index 15.7 - Constitutional Present: no acute distress, thin - Routine HEENT Exam Head: Present: normocephalic - Routine Neck Exam Present: supple - Routine Respiratory Exam Present: CTA bilaterally - Routine Cardiovascular Exam Present: RRR, no murmur - Routine Abdominal Exam Present: soft, normoactive bowel sounds, non distended, non tender Results - Labs CBC & Chem 7: 09/12/17 00:08 09/13/17 01:51 Assessment and Plan (1) DKA (diabetic ketoacidoses) Current visit: Yes Status: Acute Assessment and Plan: Will start the pt on insulin continuous drip, aggressive IV rehydration, 200cc/ hr, closely monitor electrolytes Q4 hours, given 2 liters in the ER. will need diabetes counseling, last A1C was 11.3, prior to that it was 14. checking UDS, - Physician Narrative Narrative: Date: 09/13/17 Time: 0257 Hospital Course Summary Disclaimer: The visit summary below is not to be considered part of the above Progress Note.
[2017-09-13] MEDS ORDERED: POTASSIUM CHLORIDE INJ 20 MEQ, POTASSIUM PHOSPHATE (mEq) 20 MEQ in D5NS 1,000 ML IV SCH (07:00)
[2017-09-13] MEDS ORDERED: INSULIN ASPART 100unit/ml INJECTION SQ SCH (11:30)
[2017-09-13 12:32] VITALS: BP 94/53; TEMP 98.1
[2017-09-13 13:24] VITALS: RESP 22; O2SAT 78
[2017-09-13 16:49] VITALS: PULSE 52
--- NOTE | 2017-09-13 16:51 | Discharge Summary ---
Discharge Information Date of admission: 09/13/17 01:21 Anticipated date of discharge: 09/13/17 Attending Physician: Esteban Callejas MD Primary care physician: Clarence Pryor MD - Discharge Diagnosis (1) DKA (diabetic ketoacidoses) Status: Acute - Laboratory Labs: 09/12/17 00:08 09/13/17 09:44 History of Present Illness HPI: The pt states his insulin was accidently thrown away at home yesterday, he went to the ER the morning of , was given a prescription for insulin but he went home and didn't wake up until after it closed. He told me it cost $32 which was more than he had. He has a car but didn't think to call his PCP or radio presenter to get samples of insulin. He started feeling lightheaded , GONCALVES, nausea around 0900 this morning, no diarrhea or vomiting. Objective Vital signs: Temperature 98.1 F 09/13/17 12:00 Pulse Rate 74 09/13/17 13:15 Respiratory Rate 22 09/13/17 13:15 Blood Pressure 94/53 09/13/17 12:27 Pulse Oximetry 78 L 09/13/17 12:45 Rhythm: Normal Sinus Rhythm Height/Weight/BMI: Height 6 ft Weight 52.6 kg Body Mass Index 15.7 - Constitutional Present: well nourished, well developed - Routine HEENT Exam Eye: Present: EOMI ENT: Present: mucous membranes moist, dentition normal - Routine Respiratory Exam Present: CTA bilaterally. Absent: wheezes - Routine Cardiovascular Exam Present: RRR. Absent: murmur - Routine Abdominal Exam Present: soft, normoactive bowel sounds, non distended. Absent: tenderness - Routine Extremities Exam Present: normal capillary refill - Routine Skin Exam Present: dry, warm - Routine Neurological Exam Present: alert, oriented X3, CN II-XII intact - Routine Lymphatic Exam Lymphatic: Absent: adenopathy - Routine Psychiatric Exam Present: normal affect Hospital Course This is a general summary of the patient's hospital course. For more details refer to the complete medical record. Time spent with patient: greater than 35 minutes Resuscitation Status: Full Code Discharge Plan - Discharge Disposition Disposition: Discharged Home, Self-Care *Condition: Improved Reason For Visit (Visit label in EMR): DKA - Discharge Medications *Discharge Medications: Continue Insulin Aspart [NovoLOG] 1 unit SQ PRN #1 vial - Discharge Packet/Instructions *Diet: diabetic *Activity: as tolerated *Pain Management/Treatment: none *Wound Care: none *Expected Signs/Symptoms: Return of dizziness, nausea and vomiting if blood sugars become uncontrolled again *Notify Physician if: above problems *During Business Hours Contact: primary care *After Business Hours Contact: ER *Pending Lab/Results: Follow up w/your PCP - Referrals/Follow Up - Patient Handouts Patient Handouts: Diabetic Ketoacidosis (DC) - Dismissal Complete Discharge Instructions are:: Complete Physician Narrative - Narrative Physician: other Attestation Narrative: Date: 09/13/17 Time: 1646 Mr. Corrales's 21-year-old type I diabetic who is on a [employer] insulin pump. He uses hundred and 50 units of insulin every 3 days through the pump with delivery being automated through the closed loop system. He ran out of insulin yesterday and came to the emergency room this was then corrected and he was discharged home. He had financial and transit difficulties and failed to get to the pharmacy for refills of his insulin inappropriate time and thus returned to the emergency room again around midnight. His metabolic gap again expanded to 19 and his glucose level was exceeding 500. He was again given an initial dose of insulin and placed on IV pump and thus went to the ICU for the rest of the morning. By the time of my rounding on him approximately 9 AM the metabolic gap had closed and the patient had a blood glucose level below 200. The patient was re-started on his [employer] portable personal pump and patient was transitioned off of the insulin drip and D 5/2 normal saline with potassium. Patient was restarted on oral diet and by 5 PM was ready to discharge home. Patient is follow-up with primary care in 1 to 2 weeks time
== END 2017-09-13 17:30 | disposition home or self-care (01) | DRG 639 ==
LOC: ED 23:08 → EDHOLD 09-13 01:21 → SUATTDRO 09-13 01:21 → CCU 09-13 01:30
PROVIDERS: ADMIT Internal Medicine; ATTEND Family Medicine